=== PATIENT | female | born 1945 | race Caucasian/White ===

== ENCOUNTER 2018-08-05 15:13 | Outpatient (CLI) | payer MEDICARE, OTHER ==
--- NOTE | 2018-08-05 23:09 | Ultrasound Report ---
Reason: HISTORY OF NEPHRECTOMY Procedure Date: 08/05/2018 Accession Number: [id number] / [id number] Procedure: US - Retroperitoneal CPT Code: FULL RESULT: EXAM: RENAL ULTRASOUND EXAM DATE: 08/05/2018 04:31 PM. CLINICAL HISTORY: HISTORY OF NEPHRECTOMY. COMPARISON: None. TECHNIQUE: Real-time scanning was performed with static images obtained. FINDINGS: Right Kidney: 13.7 x 5.5 x 4.8 cm. Normal echotexture with no stones, contour-deforming masses, or hydronephrosis. Small extrarenal pelvis. Left Kidney: Surgically absent. No mass is seen in the left nephrectomy bed. Bladder: The right ureteral jet is visualized. The prevoid bladder volume was 368 cc. The postvoid bladder volume was 18 cc. Other: None. IMPRESSION: Postoperative changes of left nephrectomy. Normal right kidney. No significant postvoid residual. RADIA
== END 2018-08-05 15:14 | disposition home or self-care (01) ==
LOC: DI 15:13
PROVIDERS: ATTEND Urology
DX: Z90.5 Acquired absence of kidney (principal)
CPT/HCPCS: 76770

== ENCOUNTER 2018-09-27 10:34 | Emergency (ER) | payer MEDICARE, OTHER ==
[2018-09-27] MEDS ORDERED: LIDOCAINE 2%-EPI 1:100000 20 ML MDV SUBQ STA (11:04)
--- NOTE | 2018-09-27 11:09 | ED Physician Documentation ---
History of Present Illness - Stated complaint Stated Complaint: FEMALE - Chief complaint Chief Complaint: General - History obtained from History obtained from: Patient - History of Present Illness Timing: How many days ago (several) Pain level max: 8 Pain level now: 7 - Additonal information Additional information: Patient with a left labial abscess/swelling over the past 3-4 days. Now red and tender. States has been applying warm compresses, but is not draining spontaneously. Has had to have them drained in the past. Nothing makes it better. Worse with palpation Review of Systems Constitutional: denies: Fever, Chills GI: denies: Vomiting Neurologic: denies: Headache PD PAST MEDICAL HISTORY - Past Medical History Past Medical History: No - Present Medications Home Medications: Ambulatory Orders Medication Instructions Recorded Confirmed Doxycycline Hyclate 100 mg PO BID #14 capsule 09/27/18 Nitrofurantoin Macrocrystal 25 mg PO 09/27/18 [Macrodantin] - Allergies Allergies/Adverse Reactions: Allergies Allergy/AdvReac Type Severity Reaction Status Date / Time acetaminophen [From Vicodin] Allergy Rash Verified 09/27/18 10:41 hydrocodone [From Vicodin] Allergy Rash Verified 09/27/18 10:41 Sulfa (Sulfonamide Allergy Rash Verified 09/27/18 10:41 Antibiotics) - Social History Does the pt smoke?: No Smoking Status: Never smoker PD ED PE NORMAL - Vitals Vital signs reviewed: Yes - General General: Alert and oriented X 3, No acute distress - Abdomen Abdomen: Soft, Non tender, Non distended - Female Female : 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 ) - Derm Derm: Warm and dry - Neuro Neuro: Alert and oriented X 3 Results - Vitals Vitals: Vital Signs - 24 hr 09/27/18 09/27/18 10:38 12:07 Temperature 36.2 C L 36.7 C Heart Rate 96 79 Respiratory 18 16 Rate Blood Pressure 138/65 H 103/65 O2 Saturation 95 96 Oxygen O2 Source Room air Procedures - Abscess I&D (location) L labia Preparation: Alcohol, Lidocaine 2 %, With epi Incision: Incised with scalpel, Purulent drainage, Packed, Culture obtained Other: Pt tolerated well, Dressing applied, Antibiotic prescribed PD MEDICAL DECISION MAKING - ED course Complexity details: considered differential, d/w patient ED course: 73-year-old female with a left labial abscess. Incised and drained. Tolerated well. Will place on antibiotics and follow-up with her doctor. Patient counseled regarding signs and symptoms for which I believe and urgent re-eval uation would be necessary. Patient with good understanding of and agreement to plan and is comfortable going home at this time This document was made in part using voice recognition software. While efforts are made to proofread this document, sound alike and grammatical errors may occur. Departure - Departure Disposition: 01 Home, Self Care Clinical Impression: Labial abscess Condition: Good Instructions: ED Abscess IandD Follow-Up: Patricia Cooley MD [Primary Care Provider] - Within 3 Days (for wound check) Prescriptions: Doxycycline Hyclate 100 mg PO BID #14 capsule Comments: Take all antibiotics until gone. Return if you worsen. Follow-up with your doctor for a wound check in 2-3 days. Discharge Date/Time: 09/27/18 12:11
[2018-09-27 12:08] VITALS: BP 103/65
== END 2018-09-27 12:11 | disposition home or self-care (01) ==
LOC: ED 10:34
DX: N76.4 Abscess of vulva (principal)
CPT/HCPCS: 56405; 87070; 87205; 99283

== ENCOUNTER 2018-09-29 10:00 | Emergency (ER) | payer MEDICARE, OTHER ==
[2018-09-29 10:21] VITALS: BP 147/85
--- NOTE | 2018-09-29 12:15 | ED Physician Documentation ---
History of Present Illness - Stated complaint Stated Complaint: ABCESS RE-CHECK - Chief complaint Chief Complaint: General - History obtained from History obtained from: Patient - History of Present Illness Timing: How many days ago (5) Pain level max: 8 Pain level now: 3 - Additonal information Additional information: 73-year-old female who was seen here 2 days ago and had a left labial abscess drained. States that she is still having some pain, though it has significantly improved. States that the packing has fallen out. No fevers. No vomiting. Review of Systems Constitutional: denies: Fever Skin: denies: Rash PD PAST MEDICAL HISTORY - Present Medications Home Medications: Ambulatory Orders Medication Instructions Recorded Confirmed Doxycycline Hyclate 100 mg PO BID #14 capsule 09/27/18 Nitrofurantoin Macrocrystal 25 mg PO 09/27/18 [Macrodantin] - Allergies Allergies/Adverse Reactions: Allergies Allergy/AdvReac Type Severity Reaction Status Date / Time acetaminophen [From Vicodin] Allergy Rash Verified 09/29/18 10:21 hydrocodone [From Vicodin] Allergy Rash Verified 09/29/18 10:21 Sulfa (Sulfonamide Allergy Rash Verified 09/29/18 10:21 Antibiotics) - Social History Does the pt smoke?: No Smoking Status: Never smoker PD ED PE NORMAL - Vitals Vital signs reviewed: Yes - General General: Alert and oriented X 3, No acute distress - Derm Derm: Warm and dry - Extremities Extremities: Other (L labia - 1 x 1 cm indurated area, no fluctuance. No drainage. No cellulitis) - Neuro Neuro: Alert and oriented X 3 Results - Vitals Vitals: Vital Signs - 24 hr 09/29/18 10:19 Temperature 36.8 C Heart Rate 82 Respiratory 15 Rate Blood Pressure 147/85 H O2 Saturation 96 Oxygen O2 Source Room air PD MEDICAL DECISION MAKING - ED course Complexity details: reviewed old records, considered differential, d/w patient ED course: Significantly improved left labial abscess after incision and drainage. Wound culture is still pending at this time. We will continue her antibiotics and follow-up with her doctor. Patient counseled regarding signs and symptoms for which I believe and urgent re-evaluation would be necessary. Patient with good understanding of and agreement to plan and is comfortable going home at this time This document was made in part using voice recognition software. While efforts are made to proofread this document, sound alike and grammatical errors may occur. Departure - Departure Disposition: 01 Home, Self Care Clinical Impression: Labial abscess Condition: Good Instructions: ED Abscess IandD Follow-Up: Patricia Cooley MD [Primary Care Provider] - Within 3 Days (for wound check) Comments: Your wound culture is not final yet today, this should become final later today or tomorrow. If an antibiotic change is required, we will call you for this. Otherwise continue the antibiotics as previously prescribed. Return if you worsen Discharge Date/Time: 09/29/18 12:24
== END 2018-09-29 12:24 | disposition home or self-care (01) ==
LOC: ED 10:00
DX: N76.4 Abscess of vulva (principal)
CPT/HCPCS: 99282

== ENCOUNTER 2019-12-04 08:00 | Outpatient (CLI) | payer MEDICARE, OTHER ==
[2019-12-04 12:20] LABS: BASOPHILS % (AUTO) 0.4 %; EOSINOPHILS # (AUTO) 0.1 10^3/uL (0.0-0.7); EOSINOPHILS % (AUTO) 1.7 %; HGB - HEMOGLOBIN 12.5 g/dL (12.0-16.0); LYMPHOCYTES # (AUTO) 1.7 10^3/uL (1.5-3.5); LYMPHOCYTES % (AUTO) 21.7 %; MEAN CORPUSCULAR HEMOGLOBIN 28.3 pg (27.0-31.0); MEAN CORPUSCULAR HGB CONC 31.3 g/dL (32.0-36.0); MEAN CORPUSCULAR VOLUME 90.3 fL (81.0-99.0); MEAN PLATELET VOLUME 12.5 fL (7.9-10.8); MONOCYTES # (AUTO) 0.5 10^3/uL (0.0-1.0); MONOCYTES % (AUTO) 6.3 %; NEUTROPHILS # (AUTO) 5.4 10^3/uL (1.5-6.6); NEUTROPHILS % (AUTO) 69.5 %; PLT - PLATELET COUNT 279 10^3/uL (130-450); RED BLOOD COUNT 4.42 10^6/uL (4.20-5.40); RED CELL DISTRIBUTION WIDTH 14.9 % (12.0-15.0); WHITE BLOOD COUNT 7.8 x10^3/uL (4.8-10.8)
[2019-12-04 12:39] LABS: ALBUMIN 3.9 g/dL (3.2-5.5); ALBUMIN/GLOBULIN RATIO 1.2 (1.0-2.2); ALKALINE PHOSPHATASE 67 IU/L (42-121); ALT ALANINE AMINOTRANSFERASE 13 IU/L (10-60); AST ASPARTATE AMINOTRANSFERASE 14 IU/L (10-42); BILIRUBIN,TOTAL 0.8 mg/dL (0.2-1.0); BUN - BLOOD UREA NITROGEN 25 mg/dL (6-20); CALCIUM 9.3 mg/dL (8.5-10.3); CARBON DIOXIDE - CO2 25 mmol/L (21-32); CHLORIDE 102 mmol/L (101-111); CHOL/HDL RATIO 2.5 (<4.4); CHOLESTEROL 194 mg/dL; CREATININE 0.9 mg/dL (0.4-1.0); GLUCOSE 105 mg/dL (70-100); HDL CHOLESTEROL 79 mg/dL; LDL CHOLESTEROL,CALCULATED 105 mg/dL; LDL/HDL RATIO 1.3 (<4.4); SODIUM 136 mmol/L (135-145); TOTAL PROTEIN 7.2 g/dL (6.7-8.2); VLDL CHOLESTEROL 10 mg/dL
[2019-12-04 12:50] LABS: HEMOGLOBIN A1C 0.55 g/dL
== END 2019-12-04 23:59 | disposition home or self-care (01) ==
LOC: LAB.N 08:00
PROVIDERS: ATTEND Family Medicine
DX: Z00.00 Encounter for general adult medical examination without abnormal findings (principal)
CPT/HCPCS: 36415; 80053; 80061; 83036; 83721; 84443; 85025

== ENCOUNTER 2020-04-05 14:43 | Outpatient (CLI) | payer MEDICARE, OTHER ==
--- NOTE | 2020-04-05 16:35 | Ultrasound Report ---
PROCEDURE: Retroperitoneal INDICATIONS: HISTORY OF NEPHRECTOMY, HISTORY OF BLADDER CA, TECHNIQUE: Real-time scanning was performed of the retroperitoneal organs, with image documentation. COMPARISON: Retroperitoneal ultrasound 08/05/2018 FINDINGS: Kidneys: Left kidney has been removed. Right kidney measures 11.9 cm long. Right renal cortical thic kness is 1.4 cm. No solid masses, hydronephrosis, or nephrolithiasis. Right renal cyst is present. It measures 20 x 15 x 11 mm. It was not well appreciated on prior exam. Bladder: Prevoid volume 2 83 cc. Postvoid residual 24 cc. Bilateral ureteral jets are identified. No bladder masses are identified. IMPRESSION: Stable interval exam, noting interval right renal cyst. Reviewed by: Bita Cornelius MD on 04/05/2020 4:34 PM PDT Approved by: Bita Cornelius MD on 04/05/2020 4:34 PM PDT Station ID: [id number]
== END 2020-04-05 14:44 | disposition home or self-care (01) ==
LOC: DI 14:43
PROVIDERS: ATTEND Urology
DX: N28.1 Cyst of kidney, acquired (principal); Z85.51 Personal history of malignant neoplasm of bladder; Z90.5 Acquired absence of kidney
CPT/HCPCS: 76770

== ENCOUNTER 2020-05-16 14:50 | Outpatient (CLI) | payer MEDICARE, OTHER ==
--- NOTE | 2020-05-18 15:22 | Mammography Report ---
BILATERAL DIGITAL SCREENING MAMMOGRAM 3D/2D WITH AUGMENTATION: 05/16/2020 CLINICAL: Routine screening. Bilateral implants are incapsulated. Comparison is made to exams dated: 05/16/2012 mammogram and 04/02/2011 mammogram - [facility]. The tissue of both breasts is predominantly fatty. There are benign calcifications in both breasts. No significant masses, calcifications, or other findings are seen in either breast. There has been no significant interval change. IMPRESSION: BENIGN There is no mammographic evidence of malignancy. A 1 year screening mammogram is recommended. This exam was interpreted at Station ID: [id number]. NOTE: For mammograms, a report in lay terms will be sent to the patient. Approximately 15% of breast malignancies will not be visualized mammographically. In the management of a palpable breast mass, a negative mammogram must not discourage biopsy of a clinically suspicious lesion. Electronically Signed By: Les Nixon M.D. [email or web address]:05/16/2020 17:49:40 ACR BI-RADS Category 2: Benign Finding(s) 3342F A -Almost entirely fatty 2 Mammogram [id number] 1 year screening B
== END 2020-05-16 14:51 | disposition home or self-care (01) ==
LOC: DI.N 14:50
PROVIDERS: ATTEND Family Medicine
DX: Z12.31 Encounter for screening mammogram for malignant neoplasm of breast (principal); Z98.82 Breast implant status
CPT/HCPCS: 77067

== ENCOUNTER 2021-09-22 07:59 | Outpatient (CLI) | payer MEDICARE, OTHER ==
[2021-09-22 09:10] LABS: BASOPHILS # (AUTO) 0.1 10^3/uL (0.0-0.1); BASOPHILS % (AUTO) 0.5 %; EOSINOPHILS # (AUTO) 0.2 10^3/uL (0.0-0.7); EOSINOPHILS % (AUTO) 1.6 %; HCT - HEMATOCRIT 39.3 % (37.0-47.0); HGB - HEMOGLOBIN 12.7 g/dL (12.0-16.0); LYMPHOCYTES # (AUTO) 2.2 10^3/uL (1.5-3.5); LYMPHOCYTES % (AUTO) 20.4 %; MEAN CORPUSCULAR HEMOGLOBIN 29.3 pg (27.0-31.0); MEAN CORPUSCULAR HGB CONC 32.3 g/dL (32.0-36.0); MEAN CORPUSCULAR VOLUME 90.6 fL (81.0-99.0); MEAN PLATELET VOLUME 10.5 fL (7.9-10.8); MONOCYTES # (AUTO) 0.8 10^3/uL (0.0-1.0); NEUTROPHILS # (AUTO) 7.6 10^3/uL (1.5-6.6); NEUTROPHILS % (AUTO) 69.9 %; PLT - PLATELET COUNT 320 10^3/uL (130-450); RED BLOOD COUNT 4.34 10^6/uL (4.20-5.40); RED CELL DISTRIBUTION WIDTH 14.7 % (12.0-15.0); WHITE BLOOD COUNT 10.9 x10^3/uL (4.8-10.8)
[2021-09-22 09:20] LABS: ALBUMIN/GLOBULIN RATIO 1.1 (1.0-2.2); BILIRUBIN,TOTAL 0.6 mg/dL (0.2-1.0); CALCIUM 9.5 mg/dL (8.5-10.3); POTASSIUM 4.2 mmol/L (3.5-5.0); TOTAL PROTEIN 7.7 g/dL (6.7-8.2)
== END 2021-09-22 08:00 | disposition home or self-care (01) ==
LOC: DI 07:59
PROVIDERS: ATTEND Family Medicine
DX: R05.3 Chronic cough (principal); R03.0 Elevated blood-pressure reading, without diagnosis of hypertension
CPT/HCPCS: 36415; 80053; 85025; 94060; 94729

== ENCOUNTER 2021-09-22 08:57 | Outpatient (CLI) | payer MEDICARE, OTHER ==
[2021-09-22] MEDS ORDERED: ALBUTEROL 1 PUFF INH STA (10:05)
== END 2021-09-22 08:58 | disposition home or self-care (01) ==
LOC: RT 08:57
PROVIDERS: ATTEND Family Medicine
DX: R05.3 Chronic cough (principal)
CPT/HCPCS: 94060; 94729

== ENCOUNTER 2021-11-17 11:47 | Outpatient (CLI) | payer MEDICARE, OTHER ==
--- NOTE | 2021-11-18 21:53 | CT Report ---
PROCEDURE: CHEST WO INDICATIONS: CHRONIC COUGH TECHNIQUE: Noncontrast 1mm axial images were acquired from the pulmonary apices to the posterior costophrenic an gles. Axial 5 mm soft tissue kernel reconstructions were performed as well as 8 mm axial MIP and cor onal and sagittal 5 mm reformations. For radiation dose reduction, the following was used: automate d exposure control, adjustment of mA and/or kV according to patient size. COMPARISON: Chest x-ray 09/22/2021 FINDINGS: Image quality: Excellent. Lungs and pleura: Mild biapical pleural plaquing and paraseptal cystic changes. Several bilateral up per lobe groundglass and solid nodules measuring up to 4.5 mm, for example series 4 image 86. The sub pleural anteromedial right upper lobe lung nodule measures 8 mm, /82. Spiculated nodule with tetheri ng of the major fissure is present in the posterior right upper lobe, 4/101. Calcified subcentimeter subcarinal nodule present in the posterior right lower lobe. No focal groundglass opacities or dense consolidations No pleural effusions or pneumothorax. Central and peripheral airways are patent and n ormal in caliber. Mediastinum: Heart size is normal. Mild coronary artery calcification. No pericardial effusion. No mediastinal adenopathy by size criteria. Thoracic aorta and central pulmonary arteries are normal in size. Esophagus is normal in caliber. No hiatal hernia. Bones and chest wall: Intact bilateral breast implants. Diffuse sclerosis through the mid and lower thoracic vertebral body endplates as well as endplate irregularity. No suspicious bony lesions. No v ertebral body compression fractures. No axillary or supraclavicular adenopathy by size criteria. Th e thyroid is normal in size and there are no incidental findings. Abdomen: 2.9 cm left adrenal low-density nodule with attenuation consistent with a lipid rich adenom a. Visualized upper abdominal solid organs and bowel loops appear otherwise normal in the absence of contrast. IMPRESSION: 1. Numerous bilateral subcentimeter nodules, nonspecific but raise possibility of respiratory or foll icular bronchiolitis, exposure to granulomatous disease, or hypersensitivity pneumonitis. Metastatic disease is much less likely without a known primary. 2. Biapical mild fibrotic change. 3. Left adrenal lipid ridge adenoma. 4. Degenerative changes in the thoracic spine. Reviewed by: Madonna Prabhakar MD on 11/18/2021 9:52 PM PST Approved by: Madonna Prabhakar MD on 11/18/2021 9:52 PM PST Station ID: [id number]
== END 2021-11-17 11:48 | disposition home or self-care (01) ==
LOC: DI 11:47
PROVIDERS: ATTEND Family Medicine
DX: R05.3 Chronic cough (principal); R91.8 Other nonspecific abnormal finding of lung field; J84.10 Pulmonary fibrosis, unspecified; D35.02 Benign neoplasm of left adrenal gland; M51.34 Other intervertebral disc degeneration, thoracic region

== ENCOUNTER 2022-03-05 09:04 | Emergency (ER) | payer MEDICARE, OTHER ==
[2022-03-05 09:20] VITALS: BP 165/93
--- NOTE | 2022-03-05 09:33 | ED Physician Documentation ---
PD HPI HEENT - Stated complaint Stated Complaint: C+ HEAD PX/CONGESTION - Chief complaint Chief Complaint: Heent - History obtained from History obtained from: Patient - Additional information Additional information: The patient comes to the emergency department chief complaint of ongoing congestion in her nose and sinuses and headache. Patient states her symptoms started several weeks ago and she thought that it was just her allergies. She and her went to [place], but on the of this month, when they were supposed to return, she had to take a COVID test, and was found to be positive. Patient states that he stayed in [place] for several days extra at which time she tested again and was still positive. She went to the emergency department in [place] and was told by the physician that she was unlikely to still be contagious, so a doctor's note was written and the patient is allowed to fly home. The patient states that she has discontinued to have congestion and be tired, and she is wondering how long this will go on. She denies any shortness of breath or chest pain. No fevers. No cough that is unusual. Patient states she smoked for 60 years and just quit in October, and has some COPD, but her level of dyspnea is at baseline. She is vaccinated and twice boosted for COVID. She has also had a flu shot. She is taking [id number] cold preparations and nothing seems to be making her get better. Patient states she also thinks she may have a little bit of sleep apnea which causes her to chronically to not sleep well at night, and this is not helping. No other complaints at this time. Review of Systems Ten Systems: 10 systems reviewed and negative Constitutional: reports: Reviewed and negative Eyes: reports: Reviewed and negative Ears: reports: Reviewed and negative Nose: reports: Rhinorrhea / runny nose, Congestion Throat: reports: Reviewed and negative Cardiac: reports: Reviewed and negative Respiratory: reports: Dyspnea (At baseline) GI: reports: Reviewed and negative : reports: Reviewed and negative Skin: reports: Reviewed and negative Musculoskeletal: reports: Reviewed and negative Neurologic: reports: Reviewed and negative Psychiatric: reports: Reviewed and negative Endocrine: reports: Reviewed and negative Immunocompromised: reports: Reviewed and negative PD PAST MEDICAL HISTORY - Present Medications Home Medications: Ambulatory Orders Medication Instructions Recorded Confirmed Doxycycline Hyclate 100 mg PO BID #14 capsule 09/27/18 Nitrofurantoin Macrocrystal 25 mg PO 09/27/18 [Macrodantin] - Allergies Allergies/Adverse Reactions: Allergies Allergy/AdvReac Type Severity Reaction Status Date / Time acetaminophen [From Vicodin] Allergy Rash Verified 03/05/22 09:20 hydrocodone [From Vicodin] Allergy Rash Verified 03/05/22 09:20 Sulfa (Sulfonamide Allergy Rash Verified 03/05/22 09:20 Antibiotics) - Social History Does the pt smoke?: No Smoking Status: Never smoker PD ED PE NORMAL - Vitals Vital signs reviewed: Yes - General General: Alert and oriented X 3, No acute distress, Well developed/nourished - HEENT HEENT: Atraumatic, PERRL, EOMI, Moist mucous membranes, Pharynx benign - Neck Neck: Supple, no meningeal sign - Cardiac Cardiac: RRR, No murmur, Strong equal pulses - Respiratory Respiratory: No respiratory distress, Clear bilaterally - Abdomen Abdomen: Soft, Non tender, Non distended - Derm Derm: Normal color, Warm and dry, No rash - Extremities Extremities: No deformity - Neuro Neuro: Alert and oriented X 3 - Psych Psych: Normal mood, Normal affect Results - Vitals Vitals: Vital Signs - 24 hr 03/05/22 09:16 Temperature 37.2 C Heart Rate 87 Respiratory 16 Rate Blood Pressure 165/93 H O2 Saturation 99 Oxygen O2 Source Room air - Labs Labs: Laboratory Tests 03/05/22 09:30 Nasal Adenovirus (PCR) NOT DETECTED Nasal B. parapertussis DNA (PCR) NOT DETECTED Nasal Coronavir 229E PCR NOT DETECTED Nasal Coronavir HKU1 PCR NOT DETECTED Nasal Coronavir NL63 PCR NOT DETECTED Nasal Coronavir OC43 PCR NOT DETECTED Nasal Enterovir/Rhinovir PCR NOT DETECTED Nasal Influenza B PCR NOT DETECTED Nasal Influenza A PCR NOT DETECTED Nasal Parainfluen 1 PCR NOT DETECTED Nasal Parainfluen 2 PCR NOT DETECTED Nasal Parainfluen 3 PCR NOT DETECTED Nasal Parainfluen 4 PCR NOT DETECTED Nasal RSV (PCR) NOT DETECTED Nasal B.pertussis DNA PCR NOT DETECTED Nasal C.pneumoniae (PCR) NOT DETECTED Brenden Human Metapneumo PCR NOT DETECTED Nasal M.pneumoniae (PCR) NOT DETECTED Nasal SARS-CoV-2 (PCR) DETECTED A PD MEDICAL DECISION MAKING - ED course Complexity details: reviewed results, re-evaluated patient, considered differential, d/w patient ED course: I discussed with the patient that at this point in time, I do not have a specific medication to make her better. Overall, her symptoms are minor on the spectrum of potential COVID symptoms, I am not even certain at this point that it is still COVID that is causing her symptoms, and she may have picked up another virus in the meantime. We have obtained a respiratory PCR swab which is pending at this time. The patient is stable for discharge home, but we will call her if there are any other positive results. She should continue home management of symptoms that she has. She understands that a viral illness will be ultimately self-limited, though COVID may last for some weeks or longer. Departure - Departure Disposition: 01 Home, Self Care Clinical Impression: COVID-19, Viral upper respiratory illness Condition: Stable Instructions: ED Viral Syndrome, COVID-19 [facility] Discharge Date/Time: 03/05/22 09:38
[2022-03-05 10:29] LABS: B. PARAPERTUSSIS- RESP PCR PAN NOT DETECTED; B. PERTUSSIS- RESP PCR PANEL NOT DETECTED; C. PNEUMONIAE- RESP PCR PANEL NOT DETECTED; CORONAVIRUS 229E-RESP PCR NOT DETECTED; CORONAVIRUS HKU1-RESP PCR NOT DETECTED; CORONAVIRUS NL63-RESP PCR NOT DETECTED; CORONAVIRUS OC43-RESP PCR NOT DETECTED; HUMAN METAPNEUMOVIRUS NOT DETECTED; INFLUENZA A- RESP PCR PANEL NOT DETECTED; INFLUENZA B - RESP PCR PANEL NOT DETECTED; M. PNEUMONIAE- RESP PCR PANEL NOT DETECTED; PARAINFLUENZA VIRUS 1 NOT DETECTED; PARAINFLUENZA VIRUS 2 NOT DETECTED; PARAINFLUENZA VIRUS 3 NOT DETECTED; PARAINFLUENZA VIRUS 4 NOT DETECTED; RHINOVIRUS/ENTEROVIRUS NOT DETECTED; RSV- RESP PCR PANEL NOT DETECTED
[2022-03-05 10:33] LABS: SARS-CoV-2 -RESP PCR PANEL DETECTED
== END 2022-03-05 09:38 | disposition home or self-care (01) ==
LOC: ED 09:04
DX: U07.1 COVID-19 (principal); J06.9 Acute upper respiratory infection, unspecified
CPT/HCPCS: 87633; 99283; 99284

== ENCOUNTER 2022-06-12 13:57 | Outpatient (CLI) | payer MEDICARE, OTHER ==
[2022-06-12 15:53] LABS: CALCIUM 9.6 mg/dL (8.5-10.3); CREATININE 1.8 mg/dL (0.4-1.0); POTASSIUM 4.2 mmol/L (3.5-5.0)
== END 2022-06-12 13:58 | disposition home or self-care (01) ==
LOC: LAB 13:57
PROVIDERS: ATTEND Physician Assistant
DX: R10.9 Unspecified abdominal pain (principal); Z90.5 Acquired absence of kidney
CPT/HCPCS: 36415; 80048

== ENCOUNTER 2022-06-25 19:16 | Outpatient (CLI) | payer MEDICARE, OTHER | END 2022-06-25 19:17 | disposition home or self-care (01) | LOC: SC 19:16 | PROVIDERS: ATTEND Nurse Practitioner Family | DX: G47.33 Obstructive sleep apnea (adult) (pediatric) (principal) | CPT/HCPCS: 95810 ==

== ENCOUNTER 2022-06-29 10:30 | Outpatient (CLI) | payer MEDICARE, OTHER ==
[2022-06-29 10:43] LABS: HCT - HEMATOCRIT 36.2 % (37.0-47.0); HGB - HEMOGLOBIN 11.7 g/dL (12.0-16.0); MEAN CORPUSCULAR HEMOGLOBIN 30.6 pg (27.0-31.0); MEAN CORPUSCULAR HGB CONC 32.3 g/dL (32.0-36.0); MEAN CORPUSCULAR VOLUME 94.8 fL (81.0-99.0); MEAN PLATELET VOLUME 9.9 fL (7.9-10.8); RED BLOOD COUNT 3.82 10^6/uL (4.20-5.40); RED CELL DISTRIBUTION WIDTH 13.8 % (12.0-15.0); WHITE BLOOD COUNT 8.6 x10^3/uL (4.8-10.8)
[2022-06-29 11:01] LABS: CALCIUM 9.4 mg/dL (8.5-10.3); CREATININE 1.2 mg/dL (0.4-1.0); POTASSIUM 4.2 mmol/L (3.5-5.0)
[2022-06-29 11:37] LABS: CREATININE,URINE 157.2 mg/dL; PROTEIN/CREATININE RATIO,URINE 0.1 (<=0.2)
== END 2022-06-29 10:31 | disposition home or self-care (01) ==
LOC: LAB 10:30
PROVIDERS: ATTEND Internal Medicine Nephrology
DX: N05.9 Unspecified nephritic syndrome with unspecified morphologic changes (principal); D70.9 Neutropenia, unspecified; D63.1 Anemia in chronic kidney disease; R80.9 Proteinuria, unspecified
CPT/HCPCS: 36415; 80048; 82570; 84156; 85027

== ENCOUNTER 2022-07-21 08:00 | Outpatient (CLI) | payer MEDICARE, OTHER | END 2022-07-21 23:59 | disposition home or self-care (01) | LOC: LAB.N 08:00 | PROVIDERS: ATTEND Nurse Practitioner | DX: N75.0 Cyst of Bartholin's gland (principal) | CPT/HCPCS: 87070 ==

== ENCOUNTER 2022-07-27 13:48 | Outpatient (CLI) | payer MEDICARE, OTHER ==
[2022-07-27 11:16] VITALS: BP 151/76
--- NOTE | 2022-07-27 11:16 | SLEEP CARE CONSULTATION ---
Information from patient questionnaire entered by Agustina Benites. I have reviewed and concur with the information entered by Agustina Benites. This document represents the service I personally performed and the decisions made by , Michelle Menard ARNP. History of Present Illness Service Date and Time: 07/27/2022 1100 Initial [place] Sleepiness Scale score: 4 (05/21/22) Current [place] Sleepiness Scale score: 6 (07/27/2022) Additional HPI information: VERONICA WALDRON returns via video telehealth visit for follow up and results of the recently performed polysomnography. I explained the pathophysiology behind obstructive sleep apnea. We then spent quite a bit of time discussing different treatment options. For mild obstructive sleep apnea, surgery and oral appliance are alternatives to nasal CPAP therapy but in moderate or severe cases, nasal CPAP is the most effective and reliable treatment. I reviewed the impact of weight changes on sleep apnea and strongly recommended losing weight. After some discussion, the patient opted to go with the nasal CPAP therapy. Nasal autoCPAP set at 4-15 cmH20 will be ordered with rationale explained. A manual titration study will be ordered if unable to find optimal pressure with office adjustments. I explained how CPAP machine works and what to expect when using the machine. Using CPAP every night in order to get used to it was emphasized. Patient advised to put CPAP mask on before getting into bed so as not to fall asleep without CPAP. The patient was instructed to call the CPAP supplier to discuss any mechanical problem that may occur. If the mask given is uncomfortable or is difficult to keep on through the night even with adjustment, contact the CPAP supplier as many will replace with another mask style if notified before 30 days. If snoring or perceives is not getting enough air or too much air from the machine, notify this office. Patient counseled not drink alcohol less than 4 hours before bedtime as it can increase snoring and apnea. Patient was cautioned about risks of drowsy driving until sleepiness symptoms resolve. Patient denies drowsy driving. Sleep Study - Results Type of Sleep Study: Polysomnography (COMPLETED 06/25/2022) Prior sleep studies: No Polysomnography/Home Sleep Study results: IMPRESSION: The quality of the study is good. The patient had slightly reduced sleep efficiency a few awakenings during the night. The sleep architecture was abnormal for sleep fragmentation and reduced amount of time spent in REM and slow wave sleep (N3). Respiratory monitoring showed severe obstructive sleep apnea-hypopnea (AHI = 46.0) associated with frequent arousals, oxyhemoglobin desaturation and moderate hypoxia (marianne oxygen saturation of 75%). The respiratory events occurred The patient did not sleep supine during this study (supine AHI = N/A; non-supine = 45.96). Snore was moderate to loud in intensity. There was no significant periodic leg movement of sleep. Cardiac rhythm was normal sinus rhythm without significant arrhythmia. No abnormal behavior (parasomnia) observed during the night. Allergies and Home Medications Drug allergies reviewed: Yes (vicodin, sulfa) Home medication list reviewed: Yes (cephalexin 500 mg x 2 days for 10 days) Allergy and home medication list: Allergies acetaminophen [From Vicodin] Allergy (Verified 03/05/22 09:20) Rash hydrocodone [From Vicodin] Allergy (Verified 03/05/22 09:20) Rash Sulfa (Sulfonamide Antibiotics) Allergy (Verified 03/05/22 09:20) Rash Review of Systems Review of systems same as previous: No (infected cyst lanced and drained.) Physical Exam Vital signs obtained and entered by: [employer] Blood Pressure: 151/76 (per pt) Height: 5 ft 6 in Weight: 203 lb (per pt) Body Mass Index: 32.8 BMI Classification: Obese Impression and Plan 1. Obstructive Sleep Apnea-Hypopnea Syndrome, severe, with lowest oxygen saturation of 75%. Obviously this is the cause of the patients symptoms of unrefreshed sleep, and excessive daytime sleepiness. As mentioned above, the patient will be started on nasal autoCPAP therapy with pressure set at 4-15 cmH2 O. Compliance guidelines also reviewed. A copy of compliance guidelines will be given for reference at check out. 2. Hypoxemia, as, with a marianne oxygen saturation of 75% and 19.0 minutes spent under 90%. Her baseline oxygen saturation was normal with an average oxygen saturation of 92%. 3. Obesity, unspecified. Currently patients BMI is 32.8. Obesity increases the risk of apnea, CPAP pressure requirements and overall health risks especially cardiovascular and diabetes. Thus patient is advised to lose weight. * Nasal auto CPAP therapy, pressure at 4-15 cm H2O. * Attempt to lose weight. * Avoid alcohol consumption near bedtime. * Avoid supine sleep until using CPAP. * The patient is again cautioned about driving until sleepiness completely resolves. * Return one month after CPAP obtained. I will assess response to therapy and compliance at that time. Counseling Topics: Weight loss health impact Visit Type: Telehealth Phone Video Type: Julianne Patient Location: Home Location of Provider: Office Patient agrees and consents to this telehealth visit type: Yes Patient agrees to have their insurance billed: Yes Time Spent with Patient (minutes): 14 Provider Statement: I spent 100% of the Telehealth Phone Call with the patient with greater than 50% spent counseling the patient and coordination of care.
== END 2022-07-27 13:49 | disposition home or self-care (01) ==
LOC: SC 13:48
PROVIDERS: ATTEND Nurse Practitioner Family
DX: G47.33 Obstructive sleep apnea (adult) (pediatric) (principal); E66.9 Obesity, unspecified; Z68.32 Body mass index [BMI] 32.0-32.9, adult; R09.02 Hypoxemia

== ENCOUNTER 2022-08-15 12:58 | Outpatient (CLI) | payer MEDICARE, OTHER ==
[2022-08-15 13:24] LABS: CALCIUM 9.8 mg/dL (8.5-10.3); CREATININE 1.3 mg/dL (0.4-1.0); PHOSPHORUS 3.9 mg/dL (2.5-4.6)
[2022-08-15 13:40] LABS: THYROID STIMULATING HORMONE 47.14 uIU/mL (0.34-5.60)
== END 2022-08-15 12:59 | disposition home or self-care (01) ==
LOC: LAB 12:58
PROVIDERS: ATTEND Internal Medicine Nephrology
DX: N05.9 Unspecified nephritic syndrome with unspecified morphologic changes (principal); E83.30 Disorder of phosphorus metabolism, unspecified; N25.81 Secondary hyperparathyroidism of renal origin; E03.9 Hypothyroidism, unspecified
CPT/HCPCS: 36415; 80048; 83970; 84100; 84443

== ENCOUNTER 2022-10-16 14:04 | Outpatient (CLI) | payer MEDICARE, OTHER ==
--- NOTE | 2022-10-16 17:06 | XRAY Report ---
PROCEDURE: Foot 3 View BILAT INDICATIONS: BL FOOT PX TECHNIQUE: 3 views of each foot COMPARISON: None FINDINGS: Right foot: Slight hallux valgus alignment. Mild to moderate scattered arthrosis, worst at the first MTP. No displaced fracture or dislocation. No suspicious calcifications. Plantar enthesopathy. Left foot: Slight hallux valgus alignment. Mild scattered arthrosis, worst at the first MTP. A small bone fragment is seen adjacent to the fifth metatarsal base, which may be from prior injury versus ac cessory ossicle. Plantar enthesopathy. IMPRESSION: No acute radiographic abnormality. Degenerative findings as above. If there is high concern for furth er derangement, consider MRI evaluation. Reviewed by: Carmelo Lozano MD on 10/16/2022 5:05 PM [facility] Approved by: Carmelo Lozano MD on 10/16/2022 5:05 PM [facility] Station ID: [id number]
== END 2022-10-16 14:05 | disposition home or self-care (01) ==
LOC: DI 14:04
PROVIDERS: ATTEND Podiatrist
DX: M19.071 Primary osteoarthritis, right ankle and foot (principal); M19.072 Primary osteoarthritis, left ankle and foot

== ENCOUNTER 2022-12-18 13:35 | Outpatient (CLI) | payer MEDICARE, OTHER ==
--- NOTE | 2022-12-18 14:17 | SLEEP CARE CONSULTATION ---
Information from patient questionnaire entered by Oc Benites. I have reviewed and concur with the information entered by Oc Benites. This document represents the service I personally performed and the decisions made by me, Michelle Menard ARNP. History of Present Illness Service Date and Time: 12/18/2022 1335 Previous diagnosis: Severe, Obstructive Sleep Apnea-Hypopnea Syndrome AHI: 46.0 (in 2021) Reason for follow up: other (2MONTH F/U) Equipment type: CPAP (RESMED Airsense 11 s/u 08/2022) Equipment obtained from: [employer] (getting supplies) Mask style: Full face (tried a small headgear with small cushion but was too small on the cushion; will switch to medium cushion tonight; will try the nasal cushion mask after) Backup mask available: Yes (other mask) HPI additional information: VERONICA WALDRON was diagnosed to have severe, AHI 46.0, obstructive sleep apnea- hypopnea syndrome and returned today for CPAP therapy two month follow-up. Sleep Study - Results Prior sleep studies: No CPAP Compliance Data - Data Reviewed with Patient Average duration of nightly device use: 8 HRS 13 MIN Compliance rate %: 100 (10/18/22-12/16/22; 60/60 days used) Current pressure setting (cmH2O): 10-14 Average residual AHI: 1.7 Central apnea: 0.4 Obstructive apnea: 0.4 Average large leak: 3.5 L/min Subjective Patient concerns: reports: mask discomfort, air blowing in eyes, mask leak noise, nasal congestion, dry mouth, nose, throat. denies: aerophagia, condensation in mask/hose, epistaxis Observed to snore while using device: Yes Current pressure setting perceived as: comfortable On therapy, patient: reports: sleeping better, more rested overall. denies: drowsiness while driving Initial [place] Sleepiness Scale score: 4 (05/21/22) Current [place] Sleepiness Scale score: 2 (12/18/22) Allergies and Home Medications Known drug allergies: Yes (acetaminophen, hydrocodone, sulfa) Drug allergies reviewed: Yes Home medication list reviewed: Yes (no changes) Allergy and home medication list: Allergies acetaminophen [From Vicodin] Allergy (Verified 12/17/22 09:47) Rash hydrocodone [From Vicodin] Allergy (Verified 12/17/22 09:47) Rash Sulfa (Sulfonamide Antibiotics) Allergy (Verified 12/17/22 09:47) Rash Review of Systems Review of systems same as previous: Yes (no changes) Physical Exam Vital signs obtained and entered by: OC Mcgovern MA Blood Pressure: 136/70 (LEFT ARM) Cuff size: regular Heart Rate: 89 O2 Saturation: 94 Height: 5 ft 6 in Weight: 212 lb 9.6 oz Body Mass Index: 34.3 BMI Classification: Obese Impression and Plan 1. Obstructive Sleep Apnea-Hypopnea Syndrome, severe, with good treatment co mpliance and good apnea control. On CPAP therapy, the patient has better sleep quality and is more rested overall. Patient has significant improvement of their sleep apnea and is satisfied with current CPAP therapy. Patient has still been struggling with mask issues. She felt the headgear was too big. She tried a small headgear with the full face mask and a small cushion but the cushion was too small. she feels the small headgear is right and she will try the medium cushion with it to see if it is better. She may also try a nasal cushion mask if not satisfied with the full face that she has a sample of at home. Patient's apnea severity and rationale for treatment to reduce apnea, improve sleep quality and reduce cardiovascular and cerebrovascular events was reviewed. 2. Obesity, unspecified. Currently patients BMI is 34.3. Obesity increases the risk of apnea, CPAP pressure requirements and overall health risks especially cardiovascular and diabetes. Thus patient is advised to lose weight. The patient's CPAP pressure range should accommodate some weight loss. * Continue auto CPAP pressure at 10-14 cmH2O * Notify me if snoring with mask or feeling that the pressure is too much or too little * Attempt to lose weight * Call this office if any problems using CPAP * Return for follow up in 3 months, or sooner if concerns arise Counseling Topics: Spare mask, Weight loss health impact Visit Type: In Office Time Spent with Patient (minutes): 22 Provider Statement: I spent 100% of the Face to Face Visit with the patient with greater than 50% spent counseling the patient and coordination of care.
[2022-12-18 14:18] VITALS: BP 136/70
== END 2022-12-18 13:36 | disposition home or self-care (01) ==
LOC: SC 13:35
PROVIDERS: ATTEND Nurse Practitioner Family
DX: G47.33 Obstructive sleep apnea (adult) (pediatric) (principal); E66.9 Obesity, unspecified; Z68.34 Body mass index [BMI] 34.0-34.9, adult
CPT/HCPCS: 99213; G0463; 99212

== ENCOUNTER 2023-02-26 14:53 | Outpatient (CLI) | payer MEDICARE, OTHER ==
--- NOTE | 2023-02-26 16:55 | Ultrasound Report ---
PROCEDURE: Retroperitoneal INDICATIONS: HIST OF NADIRA CA TECHNIQUE: Real-time scanning was performed of the retroperitoneal organs, with image documentation. COMPARISON: CT abdomen pelvis 05/26/2022 FINDINGS: Kidneys: Right kidney measures 12.7 cm long; renal cortical thickness is 1.5 cm. Left kidney has bee n removed. No solid masses, hydronephrosis, or nephrolithiasis. Bladder: Pre-void bladder volume is 138 mL. Post-void residual is 0 mL. Pre-void images demonstrat e no intraluminal masses or stones. On pre-void images, only the right ureteral jet is noted with co betsy Doppler interrogation. (Of note, ureteral jets may not be detectable in up to 25% of cases due t o insufficient differences in specific gravity between ureteral and bladder urine). Miscellaneous: No free abdominal fluid. IMPRESSION: Left nephrectomy. Unremarkable right kidney. Visualized portions of the bladder unremarkable. Reviewed by: Bita Cornelius MD on 02/26/2023 4:54 PM PDT Approved by: Bita Cornelius MD on 02/26/2023 4:54 PM PDT Station ID: [id number]
== END 2023-02-26 14:54 | disposition home or self-care (01) ==
LOC: DI 14:53
PROVIDERS: ATTEND Urology
DX: Z08 Encounter for follow-up examination after completed treatment for malignant neoplasm (principal); Z85.51 Personal history of malignant neoplasm of bladder; Z90.5 Acquired absence of kidney

== ENCOUNTER 2023-03-12 13:20 | Outpatient (CLI) | payer MEDICARE, OTHER ==
--- NOTE | 2023-03-12 14:07 | Sleep Patient Instructions ---
Sleep Center Visit Summary - Patient Visit Information Reason for Visit: Three month followup of CPAP therapy - Patient Instructions Additional Instructions: You were here for follow up of CPAP therapy. You will be continued on CPAP therapy with pressure at 10-14 cmH2O. You should follow up with sleep care in 12 months. You may contact us sooner for any questions or concerns. - Clinic Information Contact: [facility] [address] [place] [address] [email or web address] T: [phone]
--- NOTE | 2023-03-12 14:09 | SLEEP CARE CONSULTATION ---
Information from patient questionnaire entered by Oc Benites. I have reviewed and concur with the information entered by Oc Benites. This document represents the service I personally performed and the decisions made by me, Michelle Menard ARNP. History of Present Illness Service Date and Time: 03/12/2023 1320 Previous diagnosis: Severe, Obstructive Sleep Apnea-Hypopnea Syndrome AHI: 46.0 (in 2021) Reason for follow up: other (3 MONTH F/U) Equipment type: CPAP (RESMED Airsense 11 s/u 08/2022) Equipment obtained from: [employer] (getting supplies) Mask style: Nasal Backup mask available: Yes (other mask) Last cushion change: 1 week Prior sleep studies: No HPI additional information: VERONICA WALDRON was diagnosed to have severe, AHI 46, obstructive sleep apnea- hypopnea syndrome and returned today for CPAP therapy three month follow-up. Sleep Study - Results Prior sleep studies: No CPAP Compliance Data - Data Reviewed with Patient Average duration of nightly device use: 8 HRS 14 MINS Compliance rate %: 98 (12/09/22-03/08/23; 90/90 days used) Current pressure setting (cmH2O): 10-14 Average residual AHI: 1.3 Central apnea: 0.4 Obstructive apnea: 0.4 Hypopnea: 0.4 Subjective Patient concerns: reports: nasal congestion (has sinus issues first thing in morning prior to CPAP). denies: aerophagia, mask discomfort, air blowing in ey es, mask leak noise, condensation in mask/hose, dry mouth, nose, throat, epistaxis Observed to snore while using device: No Current pressure setting perceived as: comfortable On therapy, patient: reports: sleeping better, awakening more refreshed, being more awake and alert during the day, more rested overall. denies: drowsiness while driving Initial [place] Sleepiness Scale score: 4 (05/21/22) Current [place] Sleepiness Scale score: 1 (03/12/23) Allergies and Home Medications Known drug allergies: Yes (as listed) Drug allergies reviewed: Yes Home medication list reviewed: Yes (Levothyroxine 75 mcg) Allergy and home medication list: Allergies acetaminophen [From Vicodin] Allergy (Verified 03/11/23 10:05) Rash hydrocodone [From Vicodin] Allergy (Verified 03/11/23 10:05) Rash Sulfa (Sulfonamide Antibiotics) Allergy (Verified 03/11/23 10:05) Rash Review of Systems Review of systems same as previous: Yes (no changes) Physical Exam Vital signs obtained and entered by: OC Mcgovern MA Blood Pressure: 128/70 (LEFT ARM) Cuff size: regular Heart Rate: 84 O2 Saturation: 96 Height: 5 ft 6 in Weight: 212 lb 12.8 oz Body Mass Index: 34.3 BMI Classification: Obese Impression and Plan 1. Obstructive Sleep Apnea-Hypopnea Syndrome, severe, with good treatment compliance and good apnea control. On CPAP therapy, the patient has better sleep quality and is more rested overall. Patient has significant improvement of their sleep apnea and is satisfied with current CPAP therapy. Patient denies problems with oral dryness, nasal congestion, epistaxis, skin irritation or aerophagia. Patient's apnea severity and rationale for treatment to reduce apnea, improve sleep quality and reduce cardiovascular and cerebrovascular events was reviewed. 2. Obesity, unspecified. Currently patients BMI is 34.3. Obesity increases the risk of apnea, CPAP pressure requirements and overall health risks especially cardiovascular and diabetes. Thus patient is advised to lose weight. * Continue auto CPAP pressure at 10-14 cmH2O * Notify me if snoring with mask or feeling that the pressure is too much or too little * Attempt to lose weight * Call this office if any problems using CPAP * Return for follow up in 12 months, or sooner if concerns arise Counseling Topics: Spare mask, Weight loss health impact Visit Type: In Office Time Spent with Patient (minutes): 20 Provider Statement: I spent 100% of the Face to Face Visit with the patient with greater than 50% spent counseling the patient and coordination of care.
[2023-03-12 14:12] VITALS: BP 128/70
== END 2023-03-12 13:21 | disposition home or self-care (01) ==
LOC: SC 13:20
PROVIDERS: ATTEND Nurse Practitioner Family
DX: G47.33 Obstructive sleep apnea (adult) (pediatric) (principal); E66.9 Obesity, unspecified; Z68.34 Body mass index [BMI] 34.0-34.9, adult
CPT/HCPCS: 99213; G0463; 99212

== ENCOUNTER 2023-04-22 13:50 | Outpatient (CLI) | payer MEDICARE, OTHER ==
[2023-04-22 14:30] LABS: THYROID STIMULATING HORMONE 9.51 uIU/mL (0.34-5.60)
[2023-04-22 14:32] LABS: FREE T4 (FREE THYROXINE) 0.82 ng/dL (0.58-1.64)
== END 2023-04-22 13:51 | disposition home or self-care (01) ==
LOC: LAB 13:50
PROVIDERS: ATTEND Internal Medicine Nephrology
DX: E03.9 Hypothyroidism, unspecified (principal)
CPT/HCPCS: 36415; 84439; 84443

== ENCOUNTER 2024-01-04 07:25 | Outpatient (CLI) | payer MEDICARE, OTHER ==
[2024-01-04 07:36] LABS: BASOPHILS % (AUTO) 0.6 %; EOSINOPHILS # (AUTO) 0.2 10^3/uL (0.0-0.7); EOSINOPHILS % (AUTO) 2.2 %; HCT - HEMATOCRIT 37.7 % (37.0-47.0); HGB - HEMOGLOBIN 11.6 g/dL (12.0-16.0); LYMPHOCYTES # (AUTO) 1.4 10^3/uL (1.5-3.5); LYMPHOCYTES % (AUTO) 20.5 %; MEAN CORPUSCULAR HEMOGLOBIN 28.4 pg (27.0-31.0); MEAN CORPUSCULAR HGB CONC 30.8 g/dL (32.0-36.0); MEAN CORPUSCULAR VOLUME 92.2 fL (81.0-99.0); MEAN PLATELET VOLUME 9.8 fL (7.9-10.8); MONOCYTES # (AUTO) 0.6 10^3/uL (0.0-1.0); MONOCYTES % (AUTO) 8.5 %; NEUTROPHILS # (AUTO) 4.7 10^3/uL (1.5-6.6); NEUTROPHILS % (AUTO) 67.6 %; PLT - PLATELET COUNT 304 10^3/uL (130-450); RED BLOOD COUNT 4.09 10^6/uL (4.20-5.40); RED CELL DISTRIBUTION WIDTH 15.3 % (12.0-15.0); WHITE BLOOD COUNT 6.9 x10^3/uL (4.8-10.8)
[2024-01-04 07:55] LABS: ALBUMIN 4.2 g/dL (3.2-5.5); ALBUMIN/GLOBULIN RATIO 1.4 (1.0-2.2); ALKALINE PHOSPHATASE 75 IU/L (42-121); ALT ALANINE AMINOTRANSFERASE 10 IU/L (10-60); AST ASPARTATE AMINOTRANSFERASE 12 IU/L (10-42); BILIRUBIN,TOTAL 0.7 mg/dL (0.2-1.0); BUN - BLOOD UREA NITROGEN 33 mg/dL (6-20); CALCIUM 10.1 mg/dL (8.5-10.3); CARBON DIOXIDE - CO2 25 mmol/L (21-32); CHLORIDE 105 mmol/L (101-111); CHOL/HDL RATIO 2.8 (<4.4); CHOLESTEROL 186 mg/dL; CREATININE 1.2 mg/dL (0.6-1.3); GFR - MDRD 43 (>89); GLUCOSE 109 mg/dL (74-104); HDL CHOLESTEROL 67 mg/dL; LDL CHOLESTEROL,CALCULATED 102 mg/dL; LDL/HDL RATIO 1.5 (<4.4); POTASSIUM 4.5 mmol/L (3.5-4.5); SODIUM 137 mmol/L (135-145); TOTAL PROTEIN 7.3 g/dL (6.4-8.9); TRIGLYCERIDES 84 mg/dL (48-352); VLDL CHOLESTEROL 17 mg/dL
[2024-01-04 08:07] LABS: THYROID STIMULATING HORMONE 4.28 uIU/mL (0.34-5.60)
== END 2024-01-04 07:26 | disposition home or self-care (01) ==
LOC: LAB 07:25
PROVIDERS: ATTEND Nurse Practitioner Family
DX: R03.0 Elevated blood-pressure reading, without diagnosis of hypertension (principal); E03.9 Hypothyroidism, unspecified
CPT/HCPCS: 36415; 80053; 80061; 83721; 84439; 84443; 85025

== ENCOUNTER 2024-01-20 15:38 | Outpatient (CLI) | payer MEDICARE, OTHER ==
[2024-01-20 15:55] LABS: BASOPHILS % (AUTO) 0.3 %; EOSINOPHILS # (AUTO) 0.2 10^3/uL (0.0-0.7); EOSINOPHILS % (AUTO) 2.2 %; HCT - HEMATOCRIT 34.8 % (37.0-47.0); HGB - HEMOGLOBIN 11.1 g/dL (12.0-16.0); LYMPHOCYTES # (AUTO) 1.9 10^3/uL (1.5-3.5); LYMPHOCYTES % (AUTO) 21.3 %; MEAN CORPUSCULAR HEMOGLOBIN 29.1 pg (27.0-31.0); MEAN CORPUSCULAR HGB CONC 31.9 g/dL (32.0-36.0); MEAN CORPUSCULAR VOLUME 91.1 fL (81.0-99.0); MEAN PLATELET VOLUME 10.4 fL (7.9-10.8); MONOCYTES # (AUTO) 0.6 10^3/uL (0.0-1.0); MONOCYTES % (AUTO) 6.9 %; NEUTROPHILS # (AUTO) 6.3 10^3/uL (1.5-6.6); NEUTROPHILS % (AUTO) 69.1 %; PLT - PLATELET COUNT 285 10^3/uL (130-450); RED BLOOD COUNT 3.82 10^6/uL (4.20-5.40); RED CELL DISTRIBUTION WIDTH 15.1 % (12.0-15.0); WHITE BLOOD COUNT 9.1 x10^3/uL (4.8-10.8)
[2024-01-20 16:14] LABS: ALBUMIN 4.2 g/dL (3.2-5.5); ALBUMIN/GLOBULIN RATIO 1.3 (1.0-2.2); BILIRUBIN,TOTAL 0.5 mg/dL (0.2-1.0); CREATININE 1.2 mg/dL (0.6-1.3); POTASSIUM 4.1 mmol/L (3.5-4.5); TOTAL PROTEIN 7.4 g/dL (6.4-8.9)
== END 2024-01-20 15:39 | disposition home or self-care (01) ==
LOC: LAB 15:38
PROVIDERS: ATTEND Nurse Practitioner Family
DX: D64.9 Anemia, unspecified (principal)
CPT/HCPCS: 36415; 80053; 85025

== ENCOUNTER 2024-01-21 10:54 | Outpatient (CLI) | payer MEDICARE, OTHER ==
[2024-01-21 11:38] LABS: FERRITIN 100.7 ng/mL (11.0-306.8)
--- NOTE | 2024-01-21 21:07 | XRAY Report ---
PROCEDURE: Hand 1-2V RT INDICATIONS: RIGHT HAND JOINT PAIN TECHNIQUE: 3 views of the hand(s) acquired. COMPARISON: None. FINDINGS: Bones: No fractures or dislocations. Moderate to severe osteoarthritic changes at first CMC joint ar e seen with slight lateral subluxation at first CMC joint. Mild osteoarthritic changes throughout res t of the right hand and wrist joints. No gross bony erosive changes. No suspicious bony lesions. Soft tissues: No suspicious soft tissue calcifications or masses. IMPRESSION: No acute bony abnormality. 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 [id number] osteoa rthritis throughout rest of the right hand and wrist. No definite bony erosion. Reviewed by: Андрей Collado MD on 01/21/2024 9:06 PM PDT Approved by: Андрей Collado MD on 01/21/2024 9:06 PM PDT Station ID: [id number]
== END 2024-01-21 10:55 | disposition home or self-care (01) ==
LOC: LAB 10:54 → DI 10:55
PROVIDERS: ATTEND Nurse Practitioner Family
DX: M18.11 Unilateral primary osteoarthritis of first carpometacarpal joint, right hand (principal); M19.041 Primary osteoarthritis, right hand; D64.9 Anemia, unspecified
CPT/HCPCS: 36415; 82607; 82728; 82746; 83540; 84466

== ENCOUNTER 2024-02-13 10:24 | Emergency (ER) | payer MEDICARE, OTHER ==
--- NOTE | 2024-02-13 10:50 | ED Physician Documentation ---
PD HPI LOWER EXT INJURY - Stated complaint Stated Complaint: LT LEG PX - Chief complaint Chief Complaint: Ext Problem - History obtained from History obtained from: Patient - History of Present Illness PD HPI LOW EXT INJURY LOCATION: Left, Knee (abrupt onset of posterior left knee pain, worse with standing and gait, shortly after helping carry not too heavy object to garage. Took step up and onset pain.) Type of injury: Twist. No: Fall Where injury occurred: Home Timing - details: Abrupt onset, Still present Worsened by: Moving (extending knee and mostly hurts with weight bearing and the step off portion of gait both.). No: Palpating Associated symptoms: No: Weakness, Numbness, Swelling Similar symptoms before: Has not had sx before PD PAST MEDICAL HISTORY - Past Medical History Past Medical History: No RED CAP: Breast cancer : Renal insuffiency, Other Other Past Medical History: kidney cancer - Past Surgical History /RED CAP: Mastectomy - Present Medications Home Medications: Ambulatory Orders Medication Instructions Recorded Confirmed Levothyroxine [Synthroid] See Rx Instructions .ROUTE .COMPLEX 03/12/23 02/13/24 Multivitamin 1 each PO DAILY 02/13/24 02/13/24 Oxycodone HCl/Acetaminophen 1 each PO Q6H PRN #12 tablet 02/13/24 [Percocet 5-325 mg Tablet] - Allergies Allergies/Adverse Reactions: Allergies Allergy/AdvReac Type Severity Reaction Status Date / Time acetaminophen [From Vicodin] Allergy Rash Verified 02/13/24 10:44 hydrocodone [From Vicodin] Allergy Rash Verified 02/13/24 10:44 Sulfa (Sulfonamide Allergy Rash Verified 02/13/24 10:44 Antibiotics) - Social History Does the pt smoke?: No Smoking Status: Never smoker Does the pt drink ETOH?: Yes Does the pt have substance abuse?: No PD ED PE NORMAL - Vitals Vital signs reviewed: Yes - General General: Alert and oriented X 3, Well developed/nourished - Derm Derm: Normal color, Warm and dry - Extremities Extremities: No calf tenderness / cord, Other (left knee with mild effusion. Tender posteriorly more at the medial hamstring than popliteal recess per se. No lumps. Ligament testing had normal ACL/PCL. Valgus stress had pain lateral and not medial. Negative appley-like test. ) - Neuro Neuro: No motor deficit, No sensory deficit Results - Vitals Vitals: Vital Signs - 24 hr 02/13/24 02/13/24 10:36 12:30 Temperature 36.1 C L Heart Rate 67 64 Respiratory 15 16 Rate Blood Pressure 142/63 H 139/66 H O2 Saturation 97 100 Oxygen O2 Source Room air - Rads (name of study) left knee Relevant Findings:: Prelim report reviewed, EMP independent interpretation of test (no acute fracture/abnormality.) PD Medical Decision Making - ED course Complexity details: reviewed results (xray without acute bony process. ), consi dered differential (abrupt onset and pain to rear, with walking, suggests possibel meniscal contuion or small tear. However exam seems to localize pain to hamstring, which is intact clinically, but tender. ), d/w patient Departure - Departure Disposition: 01 Home, Self Care Clinical Impression: Knee sprain Qualifiers: Encounter type: initial encounter Involved ligament of knee: unspecified ligament Laterality: left Qualified Code(s): S83.92XA - Sprain of unspecified site of left knee, initial encounter Condition: Stable Record reviewed to determine appropriate education?: Yes Instructions: ED Meniscal Injury Knee Poss, ED Sprain Knee Follow-Up: Orthopedic Care [Provider Group] Prescriptions: Oxycodone HCl/Acetaminophen [Percocet 5-325 mg Tablet] 1 each PO Q6H PRN #12 tablet PRN Reason: pain Comments: The x-ray of your knee appears normal. However the majority of the injuries and acute problems are not bony and related to soft tissue such as ligaments and muscles in cartilage. The main ligaments of your knee seem intact and not loose. I think the acute injury in your knee is either some of the hamstring muscle which is tender but I would also consider the cartilage/meniscus as bruising or possible small tear given the degree of the pain as well as location and mechanism. I would have you use the knee splint when up and around. You do not have to have it on for resting or sleep necessarily unless it is more comfortable. Partial weightbearing with the walker as needed. Given your kidney, do not use the anti-inflammatories. Use Tylenol 500 650 mg 4 times daily regularly for the next several days to week to help with pain. Add oxycodone every 4-6 hours if needed for worse pain. Follow-up with your primary care or the orthopedic clinic if not improving well over the next week or so. You may want to even schedule a follow-up and just call for an appointment later today for about a week from now. Forms: PCP List Discharge Date/Time: 02/13/24 12:31
[2024-02-13] MEDS: oxyCODONE 5 MG TABLET PO STA (11:32)
--- NOTE | 2024-02-13 12:00 | XRAY Report ---
PROCEDURE: Knee 3V LT INDICATIONS: abrupt pain with walking yesterday TECHNIQUE: 3 views of the knee(s) were acquired. COMPARISON: None. FINDINGS: Bones: No fractures or dislocations. No suspicious bony lesions. Mild tricompartmental osteoarthrit is. Soft tissues: No knee joint effusion. No suspicious soft tissue calcifications or masses. Atheroscle rotic calcifications. IMPRESSION: No acute bony abnormality. Reviewed by: Ro Ray MD, PhD on 02/13/2024 11:59 AM PDT Approved by: Ro Ray MD, PhD on 02/13/2024 11:59 AM PDT Station ID: [id number]
[2024-02-13 12:34] VITALS: BP 139/66; O2SAT 100
== END 2024-02-13 12:31 | disposition home or self-care (01) ==
LOC: ED 10:24
DX: S83.92XA Sprain of unspecified site of left knee, initial encounter (principal); X50.0XXA Overexertion from strenuous movement or load, initial encounter; Y93.89 Activity, other specified
CPT/HCPCS: 73562; 99283; 99284; A9270

== ENCOUNTER 2024-02-21 10:46 | Outpatient (CLI) | payer MEDICARE, OTHER ==
--- NOTE | 2024-02-21 13:09 | DEXA Report ---
PROCEDURE: Dexa Spine and/or Hip INDICATIONS: POST MENOPAUSAL TECHNIQUE: Dual energy x-ray absorptiometry (DXA) was performed on a MEEP System. Regions measur ed are the AP Spine, femoral neck, and if needed forearm. COMPARISON: None FINDINGS: Lumbar Spine: Bone Mineral Density: 1.186 g/cm/cm,T score: 0.1. Left Femoral Neck: Bone Mineral Density: 0.856 g/cm/cm, T score: -1.3. Left Hip: Bone Mineral Density: 0.964 g/cm/cm,T score: -0.3. (T score greater or equal to -1.0: NORMAL) (T score from -1.1 to -2.4: OSTEOPENIA) (T score less than or equal to -2.5 to: OSTEOPOROSIS) Impression: By WHO criteria, this patient has low bone density (osteopenia). Patients with diagnosis of osteoporosis or osteopenia should have regular bone mineral density assess ment. For those eligible for Medicare, routine testing is allowed once every 2 years. Testing frequ ency can be increased for patients who have rapidly progressing disease or for those who are receivin g medical therapy to restore bone mass. Reviewed by: Roberto Ojeda MD on 02/21/2024 1:07 PM PDT Approved by: Roberto Ojeda MD on 02/21/2024 1:07 PM PDT Station ID: [id number]
== END 2024-02-21 10:47 | disposition home or self-care (01) ==
LOC: DI 10:46
PROVIDERS: ATTEND Nurse Practitioner Family
DX: M85.88 Other specified disorders of bone density and structure, other site (principal); Z78.0 Asymptomatic menopausal state

== ENCOUNTER 2024-03-10 14:30 | Outpatient (CLI) | payer MEDICARE, OTHER ==
[2024-03-10 17:40] LABS: HCT - HEMATOCRIT 34.4 % (37.0-47.0); HGB - HEMOGLOBIN 10.7 g/dL (12.0-16.0); MEAN CORPUSCULAR HEMOGLOBIN 28.5 pg (27.0-31.0); MEAN CORPUSCULAR HGB CONC 31.1 g/dL (32.0-36.0); MEAN CORPUSCULAR VOLUME 91.5 fL (81.0-99.0); MEAN PLATELET VOLUME 12.7 fL (7.9-10.8); RED BLOOD COUNT 3.76 10^6/uL (4.20-5.40); RED CELL DISTRIBUTION WIDTH 15.3 % (12.0-15.0); WHITE BLOOD COUNT 10.9 x10^3/uL (4.8-10.8)
[2024-03-10 18:09] LABS: ALBUMIN/GLOBULIN RATIO 1.4 (1.0-2.2); BILIRUBIN,TOTAL 0.6 mg/dL (0.2-1.0); CALCIUM 10.3 mg/dL (8.5-10.3); CREATININE 1.4 mg/dL (0.6-1.3); POTASSIUM 4.3 mmol/L (3.5-4.5); TOTAL PROTEIN 6.9 g/dL (6.4-8.9)
[2024-03-10 18:19] LABS: THYROID STIMULATING HORMONE 6.21 uIU/mL (0.34-5.60)
== END 2024-03-10 14:45 | disposition home or self-care (01) ==
LOC: LAB.N 14:30
PROVIDERS: ATTEND Physician Assistant Medical
DX: R60.0 Localized edema (principal)
CPT/HCPCS: 36415; 80053; 83880; 84439; 84443; 84481; 85027

== ENCOUNTER 2024-05-29 08:18 | Outpatient (CLI) | payer MEDICARE, OTHER ==
--- NOTE | 2024-05-29 14:27 | MRI Report ---
Hand RT WO CLINICAL HISTORY: 79 years of age, Female, RIGHT HAND PAIN, HAND SWELLING. COMPARISON: None Technique: Multisequence, multiplanar MRI of the right hand was performed without contrast. IV CONTRAST: Not given FINDINGS: Bones and cartilage: Moderate degenerative changes of first carpometacarpal joint, with associated s ubjacent heterotopic ossification. Small amount of fluid within the first carpal metacarpal joint. Mi ld diffuse marrow edema of the first metacarpal base, extending to the diaphysis, favoring degenerati ve. No acute fracture. Moderate amount of fluid within the distal radioulnar joint. Extensor tendons: Severe tenosynovitis of the extensor fourth tendon compartment at the level of the distal carpal row. There is full-thickness tear of the extensor digitorum of the fourth digit at the level of the distal carpal row (series 5, image 16). The extensor tendon of the fourth digit at the level of the metacarpal is redundant. In addition, there is mild radial subluxation at the fourth ext ensor tendon at the level of the metacarpal head, concerning for tear of the ulnar component of the s agittal band (series 4, image 34). The extensor tendon of the fifth digit is redundant at the level of the fifth metacarpal as well, wit h discontinuity at the distal carpal row, concerning for full-thickness tear. Mild tenosynovitis of the extensor carpi naris within the ulnar groove. Flexor tendons: Flexor tendons and volar plates are intact. No tendinosis, tenosynovitis or tendon te ar. Ligaments: Ulnar and radial collateral ligaments, accessory and proper, are intact at all visualized metacarpophalangeal and interphalangeal joints. Soft tissues and miscellaneous: Soft tissue swelling of the dorsal hand. IMPRESSION: 1.Moderate degenerative changes of first carpometacarpal joint with associated marrow edema. 2.Full-thickness tear of the extensor tendon of the fourth and fifth digit at the level of the distal carpal row. 3.Tear of the sagittal band at the fourth metacarpal head. 4.Moderate tenosynovitis of fourth extensor compartment at the level of the distal carpal row. Reviewed by: Cecelia Uribe MD on 05/29/2024 2:26 PM PDT Approved by: Cecelia Uribe MD on 05/29/2024 2:26 PM PDT Station ID: [id number]
== END 2024-05-29 08:19 | disposition home or self-care (01) ==
LOC: DI 08:18
PROVIDERS: ATTEND Nurse Practitioner Family
DX: M18.11 Unilateral primary osteoarthritis of first carpometacarpal joint, right hand (principal); S66.314A Strain of extensor muscle, fascia and tendon of right ring finger at wrist and hand level, initial encounter; S66.316A Strain of extensor muscle, fascia and tendon of right little finger at wrist and hand level, initial encounter; S66.811A Strain of other specified muscles, fascia and tendons at wrist and hand level, right hand, initial encounter; M65.9 Synovitis and tenosynovitis, unspecified